=== PATIENT | female | born 1965 | race Caucasian/White ===

== ENCOUNTER 2017-02-01 10:48 | Outpatient (CLI) | payer OTHER ==
[2017-02-01 12:20] LABS: Hematocrit 43.6 % (36.0-47.0); Mean Platelet Volume 7.5 fL (7.4-10.4); Red Blood Cell (RBC) Count 4.61 mill/uL (4.20-5.40); White Blood Cell (WBC) Count 13.8 thou/uL (4.8-10.8)
[2017-02-01 12:32] LABS: Anion Gap 12 mmol/L (10-20); BUN (Urea Nitrogen) 13 mg/dL (9.8-20.1); Calc. Creatinine Clearance 0 mL/min (70-130); Carbon Dioxide 28 mmol/L (22-29); Chloride 104 mmol/L (98-107); Estimated GFR-MDRD 53
== END 2017-02-01 10:49 | disposition home or self-care (01) ==
LOC: LABBT 10:48
PROVIDERS: ATTEND Neurological Surgery
DX: Z01.818 Encounter for other preprocedural examination (principal); M54.2 Cervicalgia; T84.9XXA Unspecified complication of internal orthopedic prosthetic device, implant and graft, initial encounter
CPT/HCPCS: 80048; 85027; 93005; 93010

== ENCOUNTER 2017-02-08 07:21 | Day surgery (SDC) | payer OTHER ==
[2017-02-01 11:41] VITALS: BMI 39.4
--- NOTE | 2017-02-07 15:52 | HP ---
HISTORY OF PRESENT ILLNESS: Ms. Ryan is a pleasant 51-year-old woman who presents for two years of increasing severe posterior neck pain, particularly with motion. She has had a C5-7 ACDF 2 years ago for radiating pain that worked wonders and over time, the pain has begun to persist. She has had epidural steroid injections recently with no benefit. 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 PAST SURGICAL HISTORY: Neck and hysterectomy. PAST MEDICAL HISTORY: Diabetes, hyperlipidemia, and hypertension. CURRENT MEDICATIONS: Metformin, atorvastatin, lisinopril, and estradiol. ALLERGIES: PENICILLIN. PHYSICAL EXAMINATION: The patient is alert and oriented x3. Gait is normal, no ataxia. Upper extre mity motor exam reveals full strength bilaterally in all muscle groups in the upper extremities. Ref lexes are equal and present bilaterally at the biceps. There is pain with active and passive range o f motion of the neck. 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 PLAN: Dr. Pedraza met with the patient, reviewed imaging and ultimately advocated for C5-C6 revision A CDF. He explained to the patient the risks, benefits, and alternatives to the procedure. The patien t expressed understanding and would like to move forward with surgery as discussed. I do believe the patient is mentally competent and capable of making medical decisions for herself. We will move for linder with surgery as planned.
[2017-02-08] MEDS ORDERED: CEFAZOLIN/Water 2 GM/20 ML SYRINGE ONE (08:31)
[2017-02-08] MEDS ORDERED: Midazolam HCl 2 mg/2 ml Vial ONE (08:31)
[2017-02-08] MEDS ORDERED: Clindamycin/D5W 900 mg/50 ml Premix Bag ONE (08:36)
[2017-02-08] MEDS ORDERED: Levofloxacin 500 mg/D5W 100 ml Premix Bag ONE (08:36)
[2017-02-08] MEDS ORDERED: Fentanyl 100 MCG/2 ML VIAL ONE ×2 (09:00→11:49)
[2017-02-08] MEDS ORDERED: Thrombin 5000 UNITS/5 ML VIAL ONE (09:05)
[2017-02-08] MEDS ORDERED: Albuterol Sulfate HFA (OR ONLY) ONE (10:59)
--- NOTE | 2017-02-08 11:28 | OP ---
DATE OF PROCEDURE: 02/08/2017 SURGEON: Anant Pedraza M.D. PERSONNEL DIRECTOR: Brayan Lowe PA-C INDICATION: Pain. 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 PROCEDURE: Exploration of fusion at C5-C6, removal of hardware, arthrodesis, and placement of allogr aft. TECHNIQUE: The patient was brought into the operating room and placed under general anesthesia. She was placed on the table in supine position. A transverse incision was planned over the lateral aspe ct of the neck on the right. After prepping and draping and after an appropriate operative pause, th e incision was created. The underlying platysma muscle was identified and incised. A blunt tissue p joaquim anterior to the sternocleidomastoid muscle was used to gain access to the prevertebral space. T he patient's cervical plate from prior surgical procedure was identified. There was a broken screw o n the left at the C5 segment. This was removed. The most distal aspect of the screw was retained wi thin the bone. The other screw at C5, both screws at C6, and the right screw at C7 could be removed. The left screw at C7; however, was stripped and could not be removed. I then returned all screws i nto the plate. There was a large gap in the plate between C5-C6 which allowed me to explore the kenny ent's prior fusion and perform an arthrodesis in this level using a drill, curettes, and Kerrisons. The disk space was drilled down which was the location of the patient's prior nonunion at C5-C6. We then took the demineralized bone matrix and cortical bone that was drilled down within the space and placed within this defect. The wound was then copiously irrigated. Hemostasis was maintained throug hout. The wound was then closed in anatomic layers and a pressure dressing was applied. There were no known procedural complications.
[2017-02-08] MEDS ORDERED: HYDROcodone/Acetaminophen 5/325 mg Tablet ONE (13:12)
[2017-02-08] MEDS ORDERED: Lidocaine 1% PF 5 ML VIAL ONE (14:46)
[2017-02-08] MEDS ORDERED: Propofol 200 MG/20 ML VIAL ONE (14:46)
[2017-02-08] MEDS ORDERED: Dexamethasone 20 MG/5 ML VIAL ONE (14:46)
[2017-02-08] MEDS ORDERED: Ondansetron HCl/PF 4 MG/2 ML Vial ONE (14:46)
[2017-02-08] MEDS ORDERED: Glycopyrrolate 0.2 MG/ML 5 ML SYRINGE ONE (14:46)
== END 2017-02-08 13:35 | disposition home or self-care (01) ==
LOC: SDC 07:21
PROVIDERS: ATTEND Neurological Surgery
PROC: 00PV0YZ Removal of Other Device from Spinal Cord, Open Approach (ICD-10-PCS; principal; 2017-02-08)
PROC: 0RG1070 Fusion of Cervical Vertebral Joint with Autologous Tissue Substitute, Anterior Approach, Anterior Column, Open Approach (ICD-10-PCS; principal; 2017-02-08)
DX: T84.9XXA Unspecified complication of internal orthopedic prosthetic device, implant and graft, initial encounter (principal); M54.2 Cervicalgia; E11.9 Type 2 diabetes mellitus without complications; E78.5 Hyperlipidemia, unspecified; I10 Essential (primary) hypertension; Z88.0 Allergy status to penicillin; Z79.84 Long term (current) use of oral hypoglycemic drugs; Z79.899 Other long term (current) drug therapy
CPT/HCPCS: J1100; J1956; J2001; J2250; J2405; J2704; J3010; J3490; J7620

== ENCOUNTER 2017-03-23 09:47 | Outpatient (CLI) | payer OTHER ==
--- NOTE | 2017-03-23 11:49 | RAD ---
FOUR VIEWS CERVICAL SPINE: Date: 03-23-17 Comparison: 12-10-15 History: Cervical radiculopathy. Cervical spine surgery. FINDINGS: Anterior discotomy and fusion hardware is present at the C5-6 and C6-7 level. There is multilevel mid cervical spine facet and uncal vertebral osteophyte formation, left greater t moody right. Open mouth odontoid view demonstrates a normal appearing dens and C1-2 articulation. No evidence for hardware failure. There is degenerative change involving the C1-2 articulation. No prevertebral soft tissue swelling is noted. IMPRESSION: Post-operative and degenerative changes within the cervical spine with no displaced fracture or evide nce of dislocation. POS: [facility]
== END 2017-03-23 09:48 | disposition home or self-care (01) ==
LOC: TBSIIMAG 09:47
PROVIDERS: ATTEND Neurological Surgery
DX: M47.22 Other spondylosis with radiculopathy, cervical region (principal); Z98.890 Other specified postprocedural states
CPT/HCPCS: 72040